=== PATIENT | female | born 1995 | race African-American/Black ===

== ENCOUNTER 2016-05-14 08:41 | Emergency (ER) | payer OTHER ==
[~2016-05-14 08:41] MED LIST: ALBUTEROL17 GM INH; ZYRTEC10 M1 PO
[2016-05-14 08:52] LABS: URINE SOURCE CLEAN CATCH
[2016-05-14 08:57] LABS: URINE APPEARANCE CLEAR; URINE BLOOD TRACE-INTACT (NEG); URINE COLOR YELLOW; URINE GLUCOSE NEG (NORM); URINE KETONE NEG (NEG); URINE LEUKOCYTE ESTERASE NEG (NEG); URINE NITRATE NEG (NEG); URINE PH 5.5 (5-8); URINE PROTEIN TRACE (NEG); URINE SPECIFIC GRAVITY >=1.030 (1.003-1.035); URINE UROBILINOGEN 0.2 MG/DL (NORM)
[2016-05-14 08:58] LABS: MICRO INDICATED? YES
[2016-05-14 09:00] LABS: URINE BILIRUBIN NEG (NEG)
[2016-05-14 09:10] LABS: URINE RBC 0-2 /[HPF] (0-2); URINE WBC 0-2 /[HPF] (0-5)
[2016-05-14 09:11] LABS: CULTURE INDICATED? NO; URINE BACTERIA NEG (NEG)
== END 2016-05-14 10:23 | disposition home or self-care (01) ==
LOC: SED 08:41
PROVIDERS: Emergency Medicine
DX: R10.9 Unspecified abdominal pain (principal); J45.909 Unspecified asthma, uncomplicated; Z88.1 Allergy status to other antibiotic agents
CPT/HCPCS: 81003; 84703; 99284